=== PATIENT | male | born 2000 | race Caucasian/White ===

== ENCOUNTER 2023-02-13 15:56 | Observation (INO) | payer BC, SELFPAY ==
[2023-02-13] VITALS (10 sets, daily range): BP systolic 110–136; BP diastolic 47–86; PULSE 49–66; RESP 16–18; TEMP 36.1–37.3; O2SAT 97–100; BMI 23.9; BMI 29.9
--- NOTE | 2023-02-13 16:15 | CT_ITS ---
We are attempting to reach an attending provider to discuss findings. An addendum with communication details will be sent when the communication is complete. STUDY: CT Abdomen And Pelvis W/ Contrast Injection 02/13/2023 6:13 PM REASON FOR EXAM: Male, 22 years old. Abdominal pain, bloating x2 days. PAIN RLQ pain TECHNIQUE: Transaxial images were obtained with oral contrast, and with Oral and amp; IV Gastrografin and amp; 100mL Isovue-300 intravenous contrast. Individualized dose optimization techniques were used for this CT. COMPARISON: None. FINDINGS: The visualized lung bases are unremarkable. The visualized portions of the heart are within normal limits. Unremarkable liver. Unremarkable gallbladder and extrahepatic biliary system. Unremarkable spleen. Unremarkable pancreas. Unremarkable bilateral adrenal glands. No acute findings of the right kidney. No acute findings of the left kidney. Unremarkable visualized stomach. Unremarkable small intestine. Unremarkable colon. There is a tubular, thick-walled appendix (10mm), consistent with acute appendicitis. Retrocecal appendix. Se 2 IM: 71. There are no acute findings of the abdominal aorta. Unremarkable inferior vena cava. Subcentimeter mesenteric lymph nodes. Unremarkable urinary bladder. Unremarkable abdominal wall. Unremarkable osseous structures. CT/Abdomen/Pelvis WITH Contrast IMPRESSION: (NOT LISTED IN ORDER OF SIGNIFICANCE) Acute appendicitis. Other findings as above. Electronically Signed: Raymundo Salinas MD at 18:26 EDT ,
--- NOTE | 2023-02-13 16:16 | EDS_ITS ---
HPI History of Present Illness Chief Complaint: Abd Pain Informant: patient Onset/Context/Timing Onset: Days (2 to 3 days) Context: Gradual Onset Current Severity: Mild Maximum Severity: Mild Narrative Narrative: Patient presents secondary to lower abdominal pain. He has had pressure and bloating sensation in the lower abdomen over the past 2 to 3 days. He is still been able to eat and drink, but states he really has not had much of an appetite. No fever or chills. He was seen at the health center at the [facility] today and due to lower abdominal tenderness on exam was sent to the ER. PFSH PFS Medical History no medical history no medical history Allergy/AdvReac Type Severity Reaction Status Date / Time No Known Allergies Allergy Verified 02/13/23 15:59 Surgical History (Updated 02/13/23 @ 16:[address] Michelle Camarillo MD) S/P arthroscopic partial lateral meniscectomy ROS ROS ED Constitutional Constitutional ED: Denies chills or fever(s) Eyes Eyes: Denies change in vision or discharge from eye(s) ENT ENT ED: Denies discharge from eye(s), rhinorrhea or sore throat Cardiovascular Cardiovascular: Denies chest pain or palpitations Respiratory/Chest Respiratory/Chest: Denies cough or dyspnea Gastrointestinal Gastrointestinal: Reports abdominal pain and constipation; Denies diarrhea, nausea or vomiting Genitourinary Genitourinary ED: Denies dysuria Musculoskeletal Musculoskeletal: Denies back pain or extremity pain Integumentary Denies Abrasions or rash Neurologic Neurologic: Denies headache(s) or weakness Psychiatric Psychiatric: Denies anxiety or depression Allergic/Immunologic Allergic/Immunologic ED: Denies lip swelling or urticaria EXAM Physical Exam Const Vital Signs: 02/13/23 15:58 Temperature 97 F L Temperature Source Temporal Pulse Rate 51 L Respiratory Rate 18 Blood Pressure 115/47 L Blood Pressure Mean 69 Pulse Ox 100 Oxygen Delivery Method Room Air Positive well nourished and well developed General Appearance ED: well developed HEENT Reports moist mucous membranes Eyes EOMs intact bilaterally Chest Wall inspection of chest normal and palpation of chest normal Resp normal respiratory effort and clear to auscultation bilaterally Cardio regular rate and regular rhythm GI GI Narrative: Abdomen soft with moderate tenderness in the right lower quadrant. Hypoactive but present bowel sounds are noted. No guarding or rebound. Extremity normal to inspection Neuro oriented x3 and no sensory deficits noted Motor Exam: strength 5/5 throughout Psych mental status grossly normal Skin no rashes or lesions noted MDM MDM MDM Narrative Medical decision making narrative: Labwork obtained to evaluate for leukocytosis, anemia, and electrolyte derangement. Urinalysis obtained to evaluate for infection/hematuria. CT scan of the abdomen and pelvis with p.o. and IV contrast obtained given his right lower quadrant tenderness and concern for appendicitis. Lab Data Attestation: I reviewed the patient's lab results. Labs: Laboratory Results - last 24 hr 02/13/23 02/13/23 02/13/23 16:46 16:46 16:46 WBC 13.4 H RBC 5.31 Hgb 14.2 Hct 44.8 MCV 84.4 MCH 26.7 L MCHC 31.7 L RDW Std Deviation 40.8 RDW Coeff of Alan 13.3 Plt Count 261 MPV 11.1 Immature Gran % (Auto) 0.300 Neut % (Auto) 77.4 H Lymph % (Auto) 15.1 L [place] % (Auto) 6.7 Eos % (Auto) 0.3 Baso % (Auto) 0.2 Absolute Neuts (auto) 10.4 H Absolute Lymphs (auto) 2.02 Nucleated RBC % 0 Sodium 136 Potassium 4.1 Chloride 104 Carbon Dioxide 29.0 Anion Gap 3 L BUN 17 Creatinine 1.01 Estim Creat Clear Calc 109.08 Est GFR (MDRD) Af Amer 121 Est GFR (MDRD) Non-Af 100 BUN/Creatinine Ratio 16.8 Glucose 97 Calcium 9.3 Urine Color Yellow Urine Clarity Clear Urine pH 7.0 Ur Specific [place] 1.010 Urine Protein Negative Urine Glucose (UA) Normal Urine Ketones Negative Urine Occult Blood Negative Urine Nitrite Negative Urine Bilirubin Negative Urine Urobilinogen Normal Ur Leukocyte Esterase Negative Urine RBC 0 SEEN Urine WBC 0 SEEN Ur Squamous Epith Cells 0 SEEN Urine Bacteria 0 SEEN Urine Mucus 0 SEEN Radiography Diagnostic Testing: Clinical Impression(s) from Imaging Studies Abdomen/Pelvis CT 02/13/23 16:15 IMPRESSION: (NOT LISTED IN ORDER OF SIGNIFICANCE) Acute appendicitis. Other findings as above. Electronically Signed: Raymundo Salinas MD at 18:26 EDT Reading Location ID and State: [facility] / [place] , Service support , ADDENDUM: 02/13/23 1836 IMPRESSION: (NOT LISTED IN ORDER OF SIGNIFICANCE) Acute appendicitis. Other findings as above. N.B. : The above Results were Read Back by Raymundo Salinas MD to Michelle Camarillo MD, and understanding confirmed on 02/13/2023 18:29:31 (ET). Electronically Signed: Raymundo Salinas MD at 18:26 EDT Reading Location ID and State: [facility] / [place] , Service support , Treatment and Re-Evaluation :: White count is 13.4 with 77% neutrophils. Chemistry studies unremarkable. Urinalysis reveals no acute infection. CT scan reveals evidence of acute appendicitis. Patient has been ordered a dose of Zosyn. I will speak with the surgeon. Discharge Plan Triage Chief Complaint: Abd Pain ED Provider: Michelle Camarillo Dx/Rx/DC Orders Clinical Impression: Acute appendicitis Primary Care Provider: Chalo Talbot,Out of Referrals: Chalo Talbot,Out of [Primary Care Provider] - Disposition Disposition: Acute Care Hospital [facility]
[2023-02-13 16:52] LABS: Bacteria 0 SEEN /hpf (None Seen); Mucous, Urine 0 SEEN /hpf (<or=2+); Red Blood Cells-Urine 0 SEEN /hpf (0-5); Squamous Epithelial Cells - UA 0 SEEN /hpf (0-5); White Blood Cells 0 SEEN /hpf (0-5)
[2023-02-13 16:55] LABS: Color, Urine Yellow (Yellow); Glucose, Dipstick Normal (Normal); Ketone-Dipstick Negative (Negative); Leukocyte Esterase-Dipstick Negative /ul (Negative); Nitrite-Dipstick Negative (Negative); Occult Blood-Urine Negative /ul (Negative); Protein-Dipstick Negative (Negative); Urine Bilirubin Dipstick Negative (Negative); Urine Clarity Clear (Clear); Urine Urobilinogen Normal (Normal)
[2023-02-13 17:00] LABS: Absolute Lymphocyte Count 2.02 X10^3/uL (0.83-4.51); Absolute Neutrophil Count 10.4 X10^3/uL (2.0-7.7); Basophil# 0.03 X10^3/uL; Basophil% 0.2 % (0-1); Eosinophil# 0.04 X10^3/uL; Eosinophils% 0.3 % (0-5); Hematocrit 44.8 % (40-54); Hemoglobin 14.2 g/dL (13.0-16.5); Lymphocyte # 2.02 X10^3/ul (0.83-4.51); Lymphocyte % 15.1 % (19-41); Mean Corp Hgb Conc 31.7 g/dL (32-36); Mean Corpuscular Hgb 26.7 pg (27.0-32.0); Mean Corpuscular Volume 84.4 fL (80-94); Mean Platelet Vol. 11.1 fl (6.2-12.0); Monocyte% 6.7 % (0-10); NRBC Flagged by Analyzer 0 % (0-5); Neutrophil # 10.37 X10^3/uL (2.7-7.7); Neutrophil % 77.4 % (47-70); Platelet Count 261 K/mm3 (150-450); RBC Distribution Width CV 13.3 % (11.6-14.6); RBC Distribution Width SD 40.8 fl (35.1-43.9); Red Blood Count 5.31 M/mm3 (4.6-6.2); White Blood Count 13.4 K/mm3 (4.4-11.0)
[2023-02-13 17:06] LABS: Anion Gap 3 (5-15); BUN 17 mg/dL (7-18); BUN/Creat Ratio 16.8 RATIO (10-20); Calcium,Total 9.3 mg/dL (8.5-10.1); Chloride 104 mmol/L (98-107); Creatinine, Serum 1.01 mg/dL (0.70-1.30); EST Glomerular Filtration Rate 100 mL/min (>60); Est Glom Filt Rate - Afr Amer 121 mL/min (>60); Estimated Creatinine Clearance 109.08 ml/min; Glucose 97 mg/dL (74-106); Potassium 4.1 mmol/L (3.5-5.1); Sodium Level 136 mmol/L (136-145)
[2023-02-13] MEDS: 0.9% Normal Saline 1,000 ML 150 ML IV (17:33)
--- NOTE | 2023-02-13 20:13 | HP.PCM.SX_ITS ---
HPI - General General Date of Admission: 02/13/23 HPI Narrative WANDA CASANOVA, is a 22 M who presents with abdominal pain for the last 3 days. Patient denies any nausea or vomiting or fevers or chills. He reports the pain is along his lower abdomen and does not radiate. It is not changed over the last 3 days. He does notice increased pain with bowel movements. PFSH Medical History no medical history Allergy/AdvReac Type Severity Reaction Status Date / Time No Known Allergies Allergy Verified 02/13/23 15:59 Surgical History S/P arthroscopic partial lateral meniscectomy Social History Smoking Status: Never smoker ROS Constitutional Constitutional: Denies anorexia, chills, fatigue or fever(s) Eyes Eyes: Denies blurry vision ENT HEENT: Denies abnormal hearing Cardiovascular Cardiovascular: Denies chest pain Respiratory/Chest Respiratory/Chest: Denies cough or dyspnea Gastrointestinal Gastrointestinal: Reports abdominal pain; Denies constipation, diarrhea, melena, nausea or vomiting Genitourinary Genitourinary: Denies change in urinary stream Musculoskeletal Musculoskeletal: Denies abnormal gait Integumentary Integumentary: Denies jaundice Neurologic Neurologic: Denies abnormal gait Psychiatric Psychiatric: Denies anxiety Endocrine Endocrinology: Denies flushing Hematologic/Lymphatic Hematologic/Lymphatic: Denies easy bleeding Vital Signs Vital Signs Vital Signs: 02/13/23 15:58 02/13/23 19:34 02/13/23 20:04 Temperature 97 F L 97.9 F Temperature Source Temporal Oral Pulse Rate 51 L 66 53 L Respiratory Rate 18 18 17 Blood Pressure 115/47 L 119/66 116/72 Blood Pressure Mean 69 83 86 Blood Pressure Source Monitor Blood Pressure Position Semi-Fowlers Blood Pressure Location Right Arm Pulse Ox 100 99 100 Oxygen Delivery Method Room Air Room Air Room Air Weight Weight: 153 lb Body Mass Index (BMI) 23.9 Physical Exam Const oriented x3 and no apparent distress Resp normal respiratory effort Cardio regular rate and regular rhythm GI soft to palpation Palpation: tender RLQ Extremity normal to inspection Results Lab / Micro Data Result Diagrams: 02/13/23 16:46 02/13/23 16:46 Labs: Laboratory Results - last 24 hr 02/13/23 16:46: WBC 13.4 H, RBC 5.31, Hgb 14.2, Hct 44.8, MCV 84.4, MCH 26.7 L, MCHC 31.7 L, RDW Std Deviation 40.8, RDW Coeff of Alan 13.3, Plt Count 261, MPV 11.1, Immature Gran % (Auto) 0.300, Neut % (Auto) 77.4 H, Lymph % (Auto) 15.1 L, [place] % (Auto) 6.7, Eos % (Auto) 0.3, Baso % (Auto) 0.2, Absolute Neuts (auto) 10.4 H, Absolute Lymphs (auto) 2.02, Nucleated RBC % 0 02/13/23 16:46: Sodium 136, Potassium 4.1, Chloride 104, Carbon Dioxide 29.0, Anion Gap 3 L, BUN 17, Creatinine 1.01, Estim Creat Clear Calc 109.08, Est GFR (MDRD) Af Amer 121, Est GFR (MDRD) Non-Af 100, BUN/Creatinine Ratio 16.8, Glucose 97, Calcium 9.3 02/13/23 16:46: Urine Color Yellow, Urine Clarity Clear, Urine pH 7.0, Ur Specific [place] 1.010, Urine Protein Negative, Urine Glucose (UA) Normal, Urine Ketones Negative, Urine Occult Blood Negative, Urine Nitrite Negative, Urine Bilirubin Negative, Urine Urobilinogen Normal, Ur Leukocyte Esterase Negative, Urine RBC 0 SEEN, Urine WBC 0 SEEN, Ur Squamous Epith Cells 0 SEEN, Urine Bacteria 0 SEEN, Urine Mucus 0 SEEN Radiology Impression Abdomen/Pelvis CT 02/13/23 16:15 IMPRESSION: (NOT LISTED IN ORDER OF SIGNIFICANCE) Acute appendicitis. Other findings as above. Electronically Signed: Raymundo Salinas MD at 18:26 EDT , ADDENDUM: 02/13/23 2289 IMPRESSION: (NOT LISTED IN ORDER OF SIGNIFICANCE) Acute appendicitis. Other findings as above. N.B. : The above Results were Read Back by Raymundo Salinas MD to Michelle Camarillo MD, and understanding confirmed on 02/13/2023 18:29:31 (ET). Electronically Signed: Raymundo Salinas MD at 18:26 EDT , Assessment & Plan Assessment/Plan (1) Acute appendicitis: QUALIFIERS: Acute appendicitis type: unspecified acute appendicitis type Qualified Code(s): K35.80 - Unspecified acute appendicitis PLAN: [facility]day [facility] of abdo daljit pain. Patient had elevated white count a CT scan revealed dilated fluid- filled appendix consistent with acute appendicitis. Patient was given antibiotics in the emergency room. I discussed laparoscopic appendectomy with the patient in detail. I discussed the procedure as well as the risks including but not limited to bleeding, infection, injury to other organs such as the bowel, bladder, ureter. Patient understands the risks and I also discussed possibility of having to place a stent or perform an ileocecectomy if there is perforation. Patient understands the risks and is willing to proceed. Ezequiel Tay MD Pager: [facility] [address] [place] [address], [address] [place] [address] Office:
[2023-02-13] MEDS: Bupivacaine 0.25% 30 ML Vial (21:01)
--- NOTE | 2023-02-13 21:53 | OP.PCM_ITS ---
Report of Operation Date of Procedure: 02/13/23 Pre-Operative Diagnosis: Acute appendicitis Post-Operative Diagnosis: Acute appendicitis Surgery/Procedure Performed:: Laparoscopic appendectomy Specimen's removed: Appendix Description of Procedure: The patient was brought into the operating room and general anesthesia was induced. The left arm was tucked and the abdomen was prepped and draped in usual sterile fashion. A small midline incision was made superior to the umbilicus and deepened to the level of the fascia. The fascia was elevated and incised. The peritoneum was also elevated and incised. A finger sweep was performed and a balloon trocar was placed into the abdomen and inflated. The abdomen was insufflated to 15 mmHg and the camera was inserted and the abdomen was inspected for any injuries upon entering the abdomen. There were none. The patient was placed in Trendelenburg position and a 5 mm ports placed in the left lower quadrant and suprapubic areas under direct visualization. Next using atraumatic bowel graspers the appendix was identified. The appendix was grasped and elevated and Enseal was used to take down the mesoappendix. A stapler was used to come across the base of the appendix. The appendix was then placed in Endo Catch bag and removed through the umbilical incision. The staple line was inspected and there was some mild bleeding. Titanium clips were placed across the staple line to stop this bleeding.. The 2 5 mm ports are removed under direct visualization. The balloon trocar was deflated and removed and all the air was removed from the abdomen. The umbilical incision fascia was closed with an 0 Vicryl [id number] suture. The incisions were then irrigated with saline and dried. Local anesthetic was injected into the incision sites. The skin incisions were then closed with interrupted 4-0 Monocryl suture and Steri- Strips. Bandages were applied and the patient was awoken and taken to PACU in stable condition. Patient tolerated the procedure well. Admit VTE Documentation VTE Mechan Device Prophylaxis: SCD's
[2023-02-13] MEDS: oxyCODONE 5 MG Tablet PO (23:26)
[2023-02-13] MEDS: 0.9% Normal Saline 1,000 ML 60 ML IV (23:28)
--- NOTE | 2023-02-14 | APP_PTH ---
PATIENT: WANDA FUCHS LOC: [facility] U#:[id number] AGE/SX: 22/M ROOM: W[facility]317 RE02/13/[address]: Dr. Ezequiel Tay MD : 2000 BED: 1 DIS: 02/14/2023 SPEC #: [id number] RECD: 02/14/23 14:14 STATUS: DAVID GIO #: [id number] SHOBHA: 02/14/23 00:[address]: Ezequiel Tay DEPT: SURGICAL PATHOLOGY RECD BY: Amaury Robles Tissues: Appendix, NOS Procedures: Surgery Specimen Level III HEADER OPERATION: Laparoscopic appendectomy PRE-OP DIAGNOSIS: Acute appendicitis TISSUE SUBMITTED: Appendix MICROSCOPIC DIAGNOSIS Appendix, appendectomy: Acute appendicitis. Acute serositis. AM:zeynep 02/18/2023 MICROSCOPIC DESCRIPTION Slides are reviewed. GROSS DESCRIPTION Received in fixative is one container labeled with the patient's name and designated appendix. The specimen consists of a U-shaped appendix measuring 7.5 cm in length and 1.0 cm in diameter. The attached periappendiceal adipose tissue measures up to 1.5 cm in width. The serosa is congested. No obvious perforation is identified. The lumen contains a small amount of hemorrhagic material. No fecalith is identified. Grab Driver sections are submitted in one cassette. / SJ:rg 02/15/2023 TC:2 CPT: 47608
[2023-02-14 01:19] VITALS: BP 111/59; PULSE 50; RESP 16; TEMP 36.7; O2SAT 98
[2023-02-14 03:09] VITALS: BP 95/54; PULSE 70; RESP 17; TEMP 36.6; O2SAT 95
[2023-02-14 06:45] VITALS: BP 102/52; PULSE 76; RESP 16; TEMP 36.8; O2SAT 98
[2023-02-14 08:00] VITALS: BP 110/61; PULSE 50; RESP 16; TEMP 36.7; O2SAT 99
--- NOTE | 2023-02-14 09:44 | DCINST_ITS ---
Discharge Instructions Procedure Appendectomy Diet Discharge Diet: Light diet - advance as tolerated Activity Discharge Activity: May Not Drive (for 2-3 days or while taking narcotic pain medications.) May shower in (days): 1 Lifting Restrictions: 20 lbs for 2 weeks Dressing / Incision Call your doctor if your incision/area has: Continuous Slow Oozing, Sudden Increased Bleeding, Increased Pain/ Swelling, Increased Redness and Foul Smelling Discharge Call your doctor if you observe: Fever of 101 or Higher Suture Line Care: Avoid Pulling/Pushing and Avoid Pinching/Bending Remove Dressing in: 2 days Cleanse incision/area with: Soap & Water Additional Dressing/Incision Instructions:: Keep dressing clean and dry. Change or remove dressing in 2 days. Leave steri strips for 1 week. May protect with a gauze bandaid. Follow Up Care Please Follow Up With: Ezequiel Tay MD When: Please call to schedule 2 week follow up appointment. [phone] Test Results: Test results from this visit will be discussed in further detail at your follow- up appointment, if applicable. Discharge Plan Admission Admit Date/Time: 02/13/23 21:57 Attending Provider: Ezequiel Tay Primary Care Provider: Chalo Talbot,Out of Discharge Orders/Prescriptions Prescriptions: New acetaminophen 325 mg Tablet 650 mg PO Q4H PRN PRN (Reason: Pain 1-10/Fever) Qty: 0 0RF oxycodone 5 mg Tablet 5 - 10 mg PO Q4H PRN PRN (Reason: Pain Score 4-10) 5 Days Qty: 20 0RF Referrals / Follow Up: Chalo Talbot,Out of [Primary Care Provider] - Disposition Disposition (needs filled in before D/C Order can be placed): Home, Self Care
--- NOTE | 2023-02-14 09:48 | PCM.PN.SRG ---
Subjective Subjective Patient reports he is doing well with no nausea or vomiting. Objective Data Objective Data Vital Signs: Vital Signs Temp Pulse Resp BP Pulse Ox O2 Del Method 98.1 F 50 L 16 110/61 99 Room Air 02/14/23 08:00 02/14/23 08:00 02/14/23 08:00 02/14/23 08:00 02/14/23 08:00 02/14/23 08:00 Oxygen Delivery Method Room Air Weight: 153 lb 0.013 oz Body Mass Index (BMI) 29.9 Intake & Output: Intake and Output for Last 24 Hours 02/12/23 02/13/23 02/14/23 23:59 23:59 23:59 Intake Total 1540 / 1540 800 / 800 Balance 1540 / 1540 800 / 800 Lab / Micro Data Result Diagrams: 02/13/23 16:46 02/13/23 16:46 Labs: Laboratory Results - last 24 hr 02/13/23 16:46: WBC 13.4 H, RBC 5.31, Hgb 14.2, Hct 44.8, MCV 84.4, MCH 26.7 L, MCHC 31.7 L, RDW Std Deviation 40.8, RDW Coeff of Alan 13.3, Plt Count 261, MPV 11.1, Immature Gran % (Auto) 0.300, Neut % (Auto) 77.4 H, Lymph % (Auto) 15.1 L, [place] % (Auto) 6.7, Eos % (Auto) 0.3, Baso % (Auto) 0.2, Absolute Neuts (auto) 10.4 H, Absolute Lymphs (auto) 2.02, Nucleated RBC % 0 02/13/23 16:46: Sodium 136, Potassium 4.1, Chloride 104, Carbon Dioxide 29.0, Anion Gap 3 L, BUN 17, Creatinine 1.01, Estim Creat Clear Calc 109.08, Est GFR (MDRD) Af Amer 121, Est GFR (MDRD) Non-Af 100, BUN/Creatinine Ratio 16.8, Glucose 97, Calcium 9.3 02/13/23 16:46: Urine Color Yellow, Urine Clarity Clear, Urine pH 7.0, Ur Specific [place] 1.010, Urine Protein Negative, Urine Glucose (UA) Normal, Urine Ketones Negative, Urine Occult Blood Negative, Urine Nitrite Negative, Urine Bilirubin Negative, Urine Urobilinogen Normal, Ur Leukocyte Esterase Negative, Urine RBC 0 SEEN, Urine WBC 0 SEEN, Ur Squamous Epith Cells 0 SEEN, Urine Bacteria 0 SEEN, Urine Mucus 0 SEEN Radiography Diagnostic Testing: Radiology Impression Abdomen/Pelvis CT 02/13/23 16:15 IMPRESSION: (NOT LISTED IN ORDER OF SIGNIFICANCE) Acute appendicitis. Other findings as above. Electronically Signed: Raymundo Salinas MD at 18:26 EDT , ADDENDUM: 02/13/23 1836 IMPRESSION: (NOT LISTED IN ORDER OF SIGNIFICANCE) Acute appendicitis. Other findings as above. N.B. : The above Results were Read Back by Raymundo Salinas MD to Michelle Camarillo MD, and understanding confirmed on 02/13/2023 18:29:31 (ET). Electronically Signed: Raymundo Salinas MD at 18:26 EDT , Physical Exam Const oriented x3 and no apparent distress Resp normal respiratory effort GI soft to palpation and non-tender Assessment & Plan Assessment/Plan (1) Acute appendicitis: QUALIFIERS: Acute appendicitis type: unspecified acute appendicitis type Qualified Code(s): K35.80 - Unspecified acute appendicitis PLAN: Patient is doing well after laparoscopic appendectomy. I will discharge him home today. He will follow-up in 2 weeks. Ezequiel Tay MD Pager: [facility] [address] [place] [address], [address] [place] [address] Office:
== END 2023-02-14 10:04 | disposition home or self-care (01) ==
LOC: ED 19:01 → MS3 20:10
PROVIDERS: Admitting Provider Surgery; Emergency Provider Emergency Medicine; Visit Provider Surgery
PROC: 0DTJ4ZZ Resection of Appendix, Percutaneous Endoscopic Approach (ICD-10-PCS; CPT 44970; principal; 2023-02-13 20:30)
DX: K35.80 Unspecified acute appendicitis (principal)
CPT/HCPCS: 44970; 00840; 99284; 74177; 80048; 81001; 85025; 88304; 96361; 96365; 99221; J7030; Q9967; A4216; C1760; G0378; J2405

== ENCOUNTER 2023-02-17 15:57 | Emergency (ER) | payer BC, SELFPAY ==
[2023-02-17 15:58] VITALS: BP 119/77; PULSE 55; RESP 16; TEMP 36.7; O2SAT 100; BMI 23.5
--- NOTE | 2023-02-17 16:48 | RAD_ITS ---
We are attempting to reach an attending provider to discuss findings. An addendum with communication details will be sent when the communication is complete. STUDY: X-RAY - UNILATERAL RIBS ( LEFT ) WITH CHEST REASON FOR EXAM: Male, 22 years old. Rib pain TECHNIQUE - RIBS: 4 view(s) of the ribs. TECHNIQUE - CHEST: Single PA view of the chest. COMPARISON: None. FINDINGS - RIBS: Normal visualized ribs without a demonstrated fracture. FINDINGS - CHEST: There is visualized rim of lucency under the bilateral hemidiaphragms suspicious for free air. There is no demonstrated pleural abnormality. Normal size heart. Normal mediastinum and moo. Normal visualized pulmonary arteries. Normal visualized aortic arch and descending thoracic aorta. Normal visualized thoracic spine. Normal visualized ribs, clavicles, and shoulders. There is no demonstrated abnormality of the visualized soft tissue structures of the upper abdomen. RAD/Ribs Uni Min 3V w/PA Chest IMPRESSION: RIBS: Normal x-ray examination of the ribs. CHEST: There is visualized gas underneath the hemidiaphragms. Recommend correlation with any recent procedure. Pneumoperitoneum in the absence of recent procedure should be suspicious for rupture of a hollow viscus. Electronically Signed: Paige Alas MD at 17:17 EDT Reading Location ID and State: [facility] / [place] Tel , Service support ,
--- NOTE | 2023-02-17 17:14 | EDS_ITS ---
HPI History of Present Illness Chief Complaint: Chest Other Narrative Narrative: 22-year-old male presenting with left rib pain/left upper abdominal pain. Patient reports that he had appendectomy about 4 days ago. He states he is not supposed to be lifting anything heavier exerting himself too much. He states he went to pull a door with his left hand and he felt a twinge of the left upper quadrant/rib area. He does not have any shortness of breath. He does not have any nausea or vomiting. No fever or chills. He states he is very nervous that he injured something. His surgical sites have not been a problem. He states he been clean and dry. PFSH PFSH Home Medications acetaminophen 325 mg tablet 650 mg PO Q4H PRN PRN Pain 1-10/Fever #0 tabs 02/14/23 [Rx Last Taken Unknown] oxycodone 5 mg tablet 5 - 10 mg PO Q4H PRN PRN Pain Score 4-10 5 days #20 tabs 02/14/23 [Rx Last Taken Unknown] Allergy/AdvReac Type Severity Reaction Status Date / Time No Known Allergies Allergy Verified 02/17/23 15:59 Surgical History S/P arthroscopic partial lateral meniscectomy Social History Smoking Status: Never smoker ROS ROS ED Constitutional Constitutional ED: Denies chills or fever(s) Eyes Eyes: Denies change in vision ENT ENT ED: Denies ear pain or rhinorrhea Cardiovascular Cardiovascular: Reports other Details: Left-sided rib pain ; Denies chest pain or palpitations Respiratory/Chest Respiratory/Chest: Denies cough or dyspnea Gastrointestinal Gastrointestinal: Reports abdominal pain; Denies constipation, nausea or vomiting Genitourinary Genitourinary ED: Denies dysuria or hematuria Musculoskeletal Musculoskeletal: Denies arthralgias Integumentary Denies abscess Neurologic Neurologic: Denies headache(s) or paresthesias EXAM Physical Exam Const Vital Signs: 02/17/23 15:58 02/17/23 16:16 02/17/23 18:30 Temperature 98.1 F Temperature Source Temporal Pulse Rate 55 L 60 Respiratory Rate 16 18 Respiratory Pattern Normal Blood Pressure 119/77 128/54 H Blood Pressure Mean 91 78 Pulse Ox 100 97 Oxygen Delivery Method Room Air Room Air 02/17/23 20:02 02/17/23 20:44 Temperature Temperature Source Pulse Rate 62 66 Respiratory Rate 18 16 Respiratory Pattern Blood Pressure 120/55 L 121/68 H Blood Pressure Mean 76 Pulse Ox 98 98 Oxygen Delivery Method Room Air Positive well nourished General Appearance ED: NAD HEENT atraumatic Eyes PERRL and EOMs intact bilaterally Chest Wall Chest Narrative: Tenderness to palpation in the lower ribs/upper abdomen in the midclavicular line. No bruising, swelling, erythema. Pain is mild. Resp normal respiratory effort Cardio regular rhythm Rate: regular rate Neuro oriented x3 and CN's II-XII intact bilaterally Sensorium / Orientation: alert Motor Exam: strength 5/5 throughout Psych mental status grossly normal MDM MDM MDM Narrative Medical decision making narrative: Patient presenting with left lower rib pain/upper abdominal pain is on the left. He states this started when he pulled the door open. He felt a twinge. On examination he is minimally tender here. He states it hurts worse to twist and move around. His surgical sites look clean and dry. Abdominal exam is benign. Patient states that he is very nervous that he injured something. I did obtain a left rib series which on my interpretation shows no acute fractures or evidence of pneumonia/pneumothorax. There is some air visualized underneath the hemidiaphragms. Patient did have recent surgery with Dr. Tay for up appendectomy. Dr. Tay recommended a CT scan with oral and IV contrast. CBC and BMP were obtained. CBC and BMP were unremarkable. CT of the ab pelvis with oral and IV contrast does not show any extravasation. The pneumoperitoneum is seen. Discussed with surgery again he was discharged home. I do believe he likely has a muscle strain. Impression: 1. History of appendicitis 2. Muscle strain 3. Pneumoperitoneum Lab Data Labs: Laboratory Results - last 24 hr 02/17/23 02/17/23 17:50 17:50 WBC 10.2 RBC 6.18 Hgb 16.7 H Hct 51.6 MCV 83.5 MCH 27.0 MCHC 32.4 RDW Std Deviation 38.5 RDW Coeff of Alan 12.8 Plt Count 303 MPV 10.6 Immature Gran % (Auto) 0.300 Neut % (Auto) 73.4 H Lymph % (Auto) 19.5 Benson % (Auto) 6.1 Eos % (Auto) 0.5 Baso % (Auto) 0.2 Absolute Neuts (auto) 7.5 Absolute Lymphs (auto) 1.99 Nucleated RBC % 0 Sodium 134 L Potassium 4.0 Chloride 100 Carbon Dioxide 30.0 Anion Gap 4 L BUN 15 Creatinine 1.02 Estim Creat Clear Calc 108.01 Est GFR (MDRD) Af Amer 119 Est GFR (MDRD) Non-Af 98 BUN/Creatinine Ratio 14.7 Glucose 96 Calcium 10.9 H Total Bilirubin 0.40 AST 20 ALT 27 Alkaline Phosphatase 132 H Total Protein 10.3 H Albumin 5.0 Globulin 5.3 H Albumin/Globulin Ratio 0.9 Lipase 108 Radiography Diagnostic Testing: Clinical Impression(s) from Imaging Studies Ribs w/Chest X-Ray 02/17/23 16:48 IMPRESSION: RIBS: Normal x-ray examination of the ribs. CHEST: There is visualized gas underneath the hemidiaphragms. Recommend correlation with any recent procedure. Pneumoperitoneum in the absence of recent procedure should be suspicious for rupture of a hollow viscus. Electronically Signed: Paige Alas MD at 17:17 EDT , ADDENDUM: 02/17/23 1730 IMPRESSION: undefined ADDENDUM: 02/17/23 1732 IMPRESSION: undefined Abdomen/Pelvis CT 02/17/23 17:32 IMPRESSION: Status post appendectomy recent postop. No visualized abscess formation. Visualized pneumoperitoneum likely from recent procedure. No visualized extravasation.. Electronically Signed: aPige Alas MD at 20:25 EDT , Discharge Plan Triage Chief Complaint: Chest Other ED Provider: Howie Herron Dx/Rx/DC Orders Instructions: ED Muscle Strain, Abdomen Prescriptions: No Action acetaminophen 325 mg Tablet 650 mg PO Q4H PRN PRN (Reason: Pain 1-10/Fever) Qty: 0 0RF oxycodone 5 mg Tablet 5 - 10 mg PO Q4H PRN PRN (Reason: Pain Score 4-10) 5 Days Qty: 20 0RF Primary Care Provider: Dain Elizabeth Referrals: Ezequiel Tay MD [Med Staff - Active Staff] - Keep [facility] appointment Dain Elizabeth MD [Primary Care Provider] - Disposition Disposition: Home, Self Care Discharge Date/Time: 02/17/23 20:44
--- NOTE | 2023-02-17 17:32 | CT_ITS ---
STUDY: CT ABDOMEN AND PELVIS WITH CONTRAST REASON FOR EXAM: Male, 22 years old. Abdominal pain -- IV PO Contrast RADIATION DOSAGE (If Supplied By Facility): CTDIvol = ( 8.91 ) mGy, DLP = ( 397.79 ) mGycm TECHNIQUE: Transaxial images were obtained from the dome of the diaphragm to the symphysis pubis without oral contrast. Oral and amp; IV Gastrografin and amp; 100mL Isovue-370 was administered. Sagittal and coronal images were reconstructed. Individualized dose optimization techniques were used for this CT. COMPARISON: February 13, 2023 CT scan abdomen and pelvis FINDINGS: The visualized lung bases are unremarkable. The visualized portions of the heart are within normal limits. There is visualized pneumoperitoneum. There is a nonspecific small cystic structure in the right hepatic lobe not seen on prior study versus a small focus of gas superimposed the liver is otherwise homogeneous noting that there is gas surrounding the liver.Gallbladder appears grossly unremarkable.. Normal spleen. Normal pancreas. Normal bilateral adrenal glands. Normal right kidney. Normal left kidney. There is free air in the stomach. Normal small intestine. There is abundant stool within the colon. There is contrast within the large and small bowel. There is non-visualization of the appendix. There is no obvious extravasation. Normal abdominal aorta. Normal inferior vena cava. Normal retroperitoneum. Normal urinary bladder. Normal abdominal wall. Normal osseous structures. CT/Abdomen/Pelvis WITH Contrast IMPRESSION: Status post appendectomy recent postop. No visualized abscess formation. Visualized pneumoperitoneum likely from recent procedure. No visualized extravasation.. Electronically Signed: Paige Alas MD at 20:25 EDT ,
[2023-02-17 17:57] LABS: Absolute Lymphocyte Count 1.99 X10^3/uL (0.83-4.51); Absolute Neutrophil Count 7.5 X10^3/uL (2.0-7.7); Basophil# 0.02 X10^3/uL; Basophil% 0.2 % (0-1); Eosinophil# 0.05 X10^3/uL; Eosinophils% 0.5 % (0-5); Hematocrit 51.6 % (40-54); Hemoglobin 16.7 g/dL (13.0-16.5); Lymphocyte # 1.99 X10^3/ul (0.83-4.51); Lymphocyte % 19.5 % (19-41); Mean Corp Hgb Conc 32.4 g/dL (32-36); Mean Corpuscular Volume 83.5 fL (80-94); Mean Platelet Vol. 10.6 fl (6.2-12.0); Monocyte# 0.62 X10^3/uL; Monocyte% 6.1 % (0-10); NRBC Flagged by Analyzer 0 % (0-5); Neutrophil # 7.47 X10^3/uL (2.7-7.7); Neutrophil % 73.4 % (47-70); Platelet Count 303 K/mm3 (150-450); RBC Distribution Width CV 12.8 % (11.6-14.6); RBC Distribution Width SD 38.5 fl (35.1-43.9); Red Blood Count 6.18 M/mm3 (4.6-6.2); White Blood Count 10.2 K/mm3 (4.4-11.0)
[2023-02-17 18:19] LABS: ALB/GLOB Ratio 0.9 RATIO (0.9-2.4); AST(SGOT) 20 U/L (15-37); Alanine Aminotransfer ALT/SGPT 27 U/L (16-61); Alkaline Phosphatase 132 U/L (45-117); Anion Gap 4 (5-15); BUN 15 mg/dL (7-18); BUN/Creat Ratio 14.7 RATIO (10-20); Calcium,Total 10.9 mg/dL (8.5-10.1); Chloride 100 mmol/L (98-107); Creatinine, Serum 1.02 mg/dL (0.70-1.30); EST Glomerular Filtration Rate 98 mL/min (>60); Est Glom Filt Rate - Afr Amer 119 mL/min (>60); Estimated Creatinine Clearance 108.01 ml/min; Globulin 5.3 g/dL (2.2-4.2); Glucose 96 mg/dL (74-106); Lipase 108 U/L (73-393); Protein, Total 10.3 g/dL (6.4-8.2); Sodium Level 134 mmol/L (136-145)
[2023-02-17 18:30] VITALS: BP 128/54; PULSE 60; RESP 18; O2SAT 97
[2023-02-17 20:02] VITALS: BP 120/55; PULSE 62; RESP 18; O2SAT 98
[2023-02-17 20:44] VITALS: BP 121/68; PULSE 66; RESP 16; O2SAT 98
== END 2023-02-17 20:44 | disposition home or self-care (01) ==
PROVIDERS: Emergency Provider Student in an Organized Health Care Education/Training Program; PCP Pediatrics; Visit Provider Student in an Organized Health Care Education/Training Program
DX: S39.011A Strain of muscle, fascia and tendon of abdomen, initial encounter (principal); R07.81 Pleurodynia; R10.12 Left upper quadrant pain; Z90.49 Acquired absence of other specified parts of digestive tract; K66.8 Other specified disorders of peritoneum; X58.XXXA Exposure to other specified factors, initial encounter
CPT/HCPCS: 71101; 74177; 80053; 83690; 85025; 99282; Q9967